=== PATIENT | female | born 1960 | race African-American/Black ===

== ENCOUNTER 2019-02-01 10:32 | Inpatient (IN) | payer MEDICARE, OTHER ==
[2019-02-01 11:00] VITALS: BMI 19.7
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
[2019-02-01] MEDS ORDERED: ALBUTEROL SO4 8 GM HFA INHALER IH PRN (11:49)
[2019-02-01] MEDS ORDERED: MAGNESIUM HYDROX 2400MG/30ML ORAL SUSPENSION 30 ML CUP PO PRN (11:57)
[2019-02-01] MEDS ORDERED: MAG HYDROX/AL HYDROX/SIMETH 30 ML UNIT-DOSE CUP PO PRN (11:57)
[2019-02-01] MEDS ORDERED: MENTHOL/PHENOL 1 EACH UD MM PRN (11:57)
[2019-02-01] MEDS ORDERED: hydrOXYzine PAMOATE 25 MG CAPSULE (FP) PO PRN (11:57)
[2019-02-01] MEDS ORDERED: MAGNESIUM CITRATE 300 ML BOTTLE PO PRN (11:57)
[2019-02-01] MEDS ORDERED: ACETAMINOPHEN 325 MG TABLET (FP) PO PRN ×2 (11:57)
[2019-02-01] MEDS ORDERED: diazePAM 5 MG TABLET PO PRN (11:58)
[2019-02-01] MEDS: LOSARTAN POTASSIUM 50 MG TABLET (FP) PO SCH (15:18)
[2019-02-01] MEDS: NIFEdipine E.R 60 MG TABLET (UD) PO SCH (15:18)
[2019-02-01] MEDS: UMECLIDINIUM/VILANTEROL (ANORO) 62.5/25 MCG INHALER IH SCH (15:18)
[2019-02-01] MEDS: ASPIRIN 81 MG CHEWABLE TABLETS PO SCH (15:18)
[2019-02-01] MEDS: diazePAM 5 MG TABLET PO SCH ×2 (15:19→21:41)
[2019-02-01] MEDS: MUPIROCIN 2% TOPICAL OINTMENT 22 GM TUBE TP SCH ×2 (15:19→21:42)
[2019-02-01] MEDS ORDERED: cloNIDine HCL 0.1 MG TABLET PO PRN (21:28)
[2019-02-01] MEDS: THIAMINE HCL 100 MG TABLET (FP) PO SCH (21:41)
[2019-02-01] MEDS: ATORVASTATIN CA 10 MG TABLET (FP) PO SCH (21:43)
[2019-02-02] MEDS: MUPIROCIN 2% TOPICAL OINTMENT 22 GM TUBE TP SCH ×3 (05:38→22:32)
[2019-02-02] MEDS: diazePAM 5 MG TABLET PO SCH ×3 (05:39→22:30)
[2019-02-02] MEDS ORDERED: ASPIRIN 81 MG CHEWABLE TABLETS PO SCH (10:00)
[2019-02-02] MEDS ORDERED: PATIENT'S OWN MEDICATION (NON-FORMULARY) (Losartan Potassium [Losartan Potassium] 100 MG) PO SCH (10:00)
[2019-02-02] MEDS ORDERED: NIFEdipine E.R. 30 MG TABLET (FP) PO SCH (10:00)
[2019-02-02] MEDS ORDERED: UMECLIDINIUM/VILANTEROL (ANORO) 62.5/25 MCG INHALER IH SCH (10:00)
[2019-02-02 10:14] LABS: HEMATOCRIT 38.4 % (32.4-45.2); MCH 32.8 pg (25.7-33.7); MCHC 33.8 g/dl (32.0-36.0); PLATELET COUNT 325 K/MM3 (134-434); RBC 3.96 M/mm3 (3.60-5.2); WHITE BLOOD COUNT 4.8 K/mm3 (4.0-10.0)
[2019-02-02] MEDS: ASPIRIN 81 MG CHEWABLE TABLETS PO SCH (10:21)
[2019-02-02] MEDS: PRENATAL VITAMINS W/ FOLIC ACID TABLET (FP) PO SCH (10:21)
[2019-02-02] MEDS: NIFEdipine E.R 60 MG TABLET (UD) PO SCH (10:21)
[2019-02-02] MEDS: HYDROCHLOROTHIAZIDE 25 MG TABLET (FP) PO SCH (10:21)
[2019-02-02] MEDS: UMECLIDINIUM/VILANTEROL (ANORO) 62.5/25 MCG INHALER IH SCH (10:22)
[2019-02-02] MEDS: LOSARTAN POTASSIUM 50 MG TABLET (FP) PO SCH (10:22)
[2019-02-02 10:27] LABS: ALBUMIN 3.9 g/dl (3.4-5.0); BILIRUBIN,TOTAL 1.4 mg/dL (0.2-1); BLOOD UREA NITROGEN 8.3 mg/dL (7-18); CALCIUM 10.2 mg/dL (8.5-10.1); CREATININE 0.7 mg/dL (0.55-1.3); POTASSIUM 3.9 mmol/L (3.5-5.1); TOT PROT 7.2 g/dl (6.4-8.2)
--- NOTE | 2019-02-02 11:50 | PN ---
S CIWA - CIWA Score Nausea/Vomitin-No Nausea/No Vomiting Muscle Tremors: 3 Anxiety: 3 Agitation: 3 Paroxysmal Sweats: 1-Minimal Palms Moist Orientation: 0-Oriented Tacttile Disturbances: 0-None Auditory Disturbances: 0-None Visual Disturbances: 0-None Headache: 0-None Present CIWA-Ar Total Score: 10 BHS Progress Note (SOAP) Subjective: sweats shakes interrupted sleep agitation Objective: 02/02/19 11:29 Vital Signs Temperature 98.2 F 02/02/19 09:41 Pulse Rate 86 02/02/19 09:41 Respiratory Rate 16 02/02/19 09:41 Blood Pressure 125/83 02/02/19 09:41 O2 Sat by Pulse Oximetry (%) Laboratory Tests 02/01/19 02/02/19 02/02/19 16:24 05:37 08:15 WBC 4.8 RBC 3.96 Hgb 13.0 Hct 38.4 MCV 97.0 H MCH 32.8 MCHC 33.8 RDW 14.0 Plt Count 325 MPV 8.0 Sodium Potassium Chloride Carbon Dioxide Anion Gap BUN Creatinine Est GFR (CKD-EPI)AfAm Est GFR (CKD-EPI)NonAf POC Glucometer 249 109 Random Glucose Calcium Total Bilirubin AST ALT Alkaline Phosphatase Total Protein Albumin 02/02/19 08:15 WBC RBC Hgb Hct MCV MCH MCHC RDW Plt Count MPV Sodium 141 Potassium 3.9 Chloride 102 Carbon Dioxide 32 Anion Gap 6 L BUN 8.3 Creatinine 0.7 Est GFR (CKD-EPI)AfAm 111.47 Est GFR (CKD-EPI)NonAf 96.18 POC Glucometer Random Glucose 101 Calcium 10.2 H Total Bilirubin 1.4 H AST 113 H ALT 116 H Alkaline Phosphatase 120 H Total Protein 7.2 Albumin 3.9 labs noted elevated liver enzymes, calcium, bilirubin d/c tylenol repeat labs aaox3 ambulating no acute distress Assessment: 02/02/19 11:49 withdrawals Plan: continue detox increase fluids repeat labs
[2019-02-02] MEDS: THIAMINE HCL 100 MG TABLET (FP) PO SCH (22:30)
[2019-02-02] MEDS: MELATONIN 5 MG TABLETS PO PRN (22:30)
[2019-02-02] MEDS: ATORVASTATIN CA 10 MG TABLET (FP) PO SCH (22:30)
[2019-02-03] MEDS: diazePAM 5 MG TABLET PO SCH ×2 (05:40→18:28)
[2019-02-03] MEDS: MUPIROCIN 2% TOPICAL OINTMENT 22 GM TUBE TP SCH ×2 (05:40→14:47)
[2019-02-03] MEDS: UMECLIDINIUM/VILANTEROL (ANORO) 62.5/25 MCG INHALER IH SCH (10:01)
[2019-02-03] MEDS: NIFEdipine E.R 60 MG TABLET (UD) PO SCH (10:02)
[2019-02-03] MEDS: LOSARTAN POTASSIUM 50 MG TABLET (FP) PO SCH (10:02)
[2019-02-03] MEDS: PRENATAL VITAMINS W/ FOLIC ACID TABLET (FP) PO SCH (10:02)
[2019-02-03] MEDS: ASPIRIN 81 MG CHEWABLE TABLETS PO SCH (10:02)
[2019-02-03] MEDS: HYDROCHLOROTHIAZIDE 25 MG TABLET (FP) PO SCH (10:02)
--- NOTE | 2019-02-03 12:19 | PN ---
S CIWA - CIWA Score Nausea/Vomitin-No Nausea/No Vomiting Muscle Tremors: 2 Anxiety: 1-Mildly Anxious Agitation: 1-Slight > Activity Paroxysmal Sweats: 1-Minimal Palms Moist Orientation: 0-Oriented Tacttile Disturbances: 0-None Auditory Disturbances: 0-None Visual Disturbances: 0-None Headache: 0-None Present CIWA-Ar Total Score: 5 BHS Progress Note (SOAP) Subjective: sweats anxiety Objective: 02/03/19 12:17 Vital Signs Temperature 98.2 F 02/03/19 11:26 Pulse Rate 73 02/03/19 11:26 Respiratory Rate 18 02/03/19 11:26 Blood Pressure 125/89 02/03/19 11:26 O2 Sat by Pulse Oximetry (%) Laboratory Tests 02/01/19 02/02/19 02/02/19 16:24 05:37 08:15 WBC RBC Hgb Hct MCV MCH MCHC RDW Plt Count MPV Sodium Potassium Chloride Carbon Dioxide Anion Gap BUN Creatinine Est GFR (CKD-EPI)AfAm Est GFR (CKD-EPI)NonAf POC Glucometer 249 109 Random Glucose Calcium Total Bilirubin AST ALT Alkaline Phosphatase Total Protein Albumin RPR Titer HIV 1&2 Antibody Screen Negative HIV P24 Antigen Negative 02/02/19 02/02/19 02/02/19 08:15 08:15 08:15 WBC 4.8 RBC 3.96 Hgb 13.0 Hct 38.4 MCV 97.0 H MCH 32.8 MCHC 33.8 RDW 14.0 Plt Count 325 MPV 8.0 Sodium 141 Potassium 3.9 Chloride 102 Carbon Dioxide 32 Anion Gap 6 L BUN 8.3 Creatinine 0.7 Est GFR (CKD-EPI)AfAm 111.47 Est GFR (CKD-EPI)NonAf 96.18 POC Glucometer Random Glucose 101 Calcium 10.2 H Total Bilirubin 1.4 H AST 113 H ALT 116 H Alkaline Phosphatase 120 H Total Protein 7.2 Albumin 3.9 RPR Titer Nonreactive HIV 1&2 Antibody Screen HIV P24 Antigen 02/02/19 02/03/19 16:37 05:38 WBC RBC Hgb Hct MCV MCH MCHC RDW Plt Count MPV Sodium Potassium Chloride Carbon Dioxide Anion Gap BUN Creatinine Est GFR (CKD-EPI)AfAm Est GFR (CKD-EPI)NonAf POC Glucometer 136 103 Random Glucose Calcium Total Bilirubin AST ALT Alkaline Phosphatase Total Protein Albumin RPR Titer HIV 1&2 Antibody Screen HIV P24 Antigen repeated labs ordered aaox3 ambulating no acute distress Assessment: 02/03/19 12:18 mild withdrawals facial abrasions healing Plan: continue detox increase fluids pending labs d/c in am
[2019-02-03 18:40] LABS: BASO % 0.7 % (0-2.0); EOS % 1.3 % (0-4.5); HEMATOCRIT 38.5 % (32.4-45.2); LYMPH % 49.7 % (8-40); MCHC 33.8 g/dl (32.0-36.0); MEAN CELL VOLUME 97.7 fl (80-96); MEAN PLT VOLUME 7.8 fl (7.5-11.1); MONO % 8.9 % (3.8-10.2); NEUT % 39.4 % (42.8-82.8); PLATELET COUNT 343 K/MM3 (134-434); RBC 3.94 M/mm3 (3.60-5.2); RDW 13.8 % (11.6-15.6); WHITE BLOOD COUNT 6.9 K/mm3 (4.0-10.0)
[2019-02-03] MEDS: THIAMINE HCL 100 MG TABLET (FP) PO SCH (22:16)
[2019-02-03] MEDS: ATORVASTATIN CA 10 MG TABLET (FP) PO SCH (22:16)
[2019-02-03] MEDS: MELATONIN 5 MG TABLETS PO PRN (22:17)
[2019-02-04] MEDS: MUPIROCIN 2% TOPICAL OINTMENT 22 GM TUBE TP SCH ×2 (00:11→05:56)
[2019-02-04] MEDS ORDERED: diazePAM 5 MG TABLET PO ONE (06:00)
[2019-02-04 06:47] VITALS: TEMP 97.7
--- NOTE | 2019-02-04 08:26 | DS ---
[facility] Detox Discharge Summary Admission Date: 02/01/19 Discharge Date: 02/04/19 - History Present History: Alcohol Dependence, Cannabis Dependence - Physical Exam Results Vital Signs: Vital Signs Temperature 97.7 F 02/04/19 06:00 Pulse Rate 73 02/04/19 06:00 Respiratory Rate 16 02/04/19 06:00 Blood Pressure 115/72 02/04/19 06:00 O2 Sat by Pulse Oximetry (%) Pertinent Admission Physical Exam Findings: pt arrived in withdrawals Vital Signs Temperature 97.7 F 02/04/19 06:00 Pulse Rate 73 02/04/19 06:00 Respiratory Rate 16 02/04/19 06:00 Blood Pressure 115/72 02/04/19 06:00 O2 Sat by Pulse Oximetry (%) Laboratory Tests 02/01/19 02/02/19 02/02/19 16:24 05:37 08:15 WBC RBC Hgb Hct MCV MCH MCHC RDW Plt Count MPV Absolute Neuts (auto) Neutrophils % Lymphocytes % Monocytes % Eosinophils % Basophils % Nucleated RBC % Sodium Potassium Chloride Carbon Dioxide Anion Gap BUN Creatinine Est GFR (CKD-EPI)AfAm Est GFR (CKD-EPI)NonAf POC Glucometer 249 109 Random Glucose Calcium Total Bilirubin AST ALT Alkaline Phosphatase Total Protein Albumin RPR Titer HIV 1&2 Antibody Screen Negative HIV P24 Antigen Negative 02/02/19 02/02/19 02/02/19 08:15 08:15 08:15 WBC 4.8 RBC 3.96 Hgb 13.0 Hct 38.4 MCV 97.0 H MCH 32.8 MCHC 33.8 RDW 14.0 Plt Count 325 MPV 8.0 Absolute Neuts (auto) Neutrophils % Lymphocytes % Monocytes % Eosinophils % Basophils % Nucleated RBC % Sodium 141 Potassium 3.9 Chloride 102 Carbon Dioxide 32 Anion Gap 6 L BUN 8.3 Creatinine 0.7 Est GFR (CKD-EPI)AfAm 111.47 Est GFR (CKD-EPI)NonAf 96.18 POC Glucometer Random Glucose 101 Calcium 10.2 H Total Bilirubin 1.4 H AST 113 H ALT 116 H Alkaline Phosphatase 120 H Total Protein 7.2 Albumin 3.9 RPR Titer Nonreactive HIV 1&2 Antibody Screen HIV P24 Antigen 02/02/19 02/03/19 02/03/19 16:37 05:38 13:30 WBC 6.9 RBC 3.94 Hgb 13.0 Hct 38.5 MCV 97.7 H MCH 33.0 MCHC 33.8 RDW 13.8 Plt Count 343 MPV 7.8 Absolute Neuts (auto) 2.7 Neutrophils % 39.4 L Lymphocytes % 49.7 H Monocytes % 8.9 Eosinophils % 1.3 Basophils % 0.7 Nucleated RBC % 0 Sodium Potassium Chloride Carbon Dioxide Anion Gap BUN Creatinine Est GFR (CKD-EPI)AfAm Est GFR (CKD-EPI)NonAf POC Glucometer 136 103 Random Glucose Calcium Total Bilirubin AST ALT Alkaline Phosphatase Total Protein Albumin RPR Titer HIV 1&2 Antibody Screen HIV P24 Antigen 02/03/19 02/04/19 16:47 05:52 WBC RBC Hgb Hct MCV MCH MCHC RDW Plt Count MPV Absolute Neuts (auto) Neutrophils % Lymphocytes % Monocytes % Eosinophils % Basophils % Nucleated RBC % Sodium Potassium Chloride Carbon Dioxide Anion Gap BUN Creatinine Est GFR (CKD-EPI)AfAm Est GFR (CKD-EPI)NonAf POC Glucometer 82 88 Random Glucose Calcium Total Bilirubin AST ALT Alkaline Phosphatase Total Protein Albumin RPR Titer HIV 1&2 Antibody Screen HIV P24 Antigen today pt is aaox3 ambulating no acute distress - Treatment Hospital Course: Detox Protocol Followed, Detoxed Safely, Responded well, Discharged Condition Good, Rehab Referral Accepted Patient has Accepted a Rehab Referral to: pt referred to [facility] [place] - Medication Discharge Medications: Ambulatory Orders Aspirin [ASA -] 81 mg PO DAILY 10/09/14 metFORMIN HCL [Glucophage -] 600 mg PO DAILY 10/09/14 Albuterol Sulfate Inhaler - [Ventolin Hfa Inhaler -] 2 inh PO Q4H PRN 02/01/19 Ascorbate Calcium [Vitamin C] 500 mg PO DAILY 02/01/19 Hydrochlorothiazide 25 mg PO DAILY 02/01/19 Losartan Potassium 100 mg PO DAILY 02/01/19 Lovastatin 40 mg PO 02/01/19 Nifedipine [Procardia Xl] 30 mg PO DAILY 02/01/19 Umeclidinium Brm/Vilanterol Tr [Anoro Ellipta 62.5-25 Mcg INH] 1 each IH DAILY 02/01/19 Vitamin E 400 unit PO DAILY 02/01/19 - Diagnosis (1) Cannabis dependence Current Visit: Yes Status: Chronic (2) Alcohol dependence Current Visit: No Status: Chronic Qualifiers: Substance use status: uncomplicated Qualified Code(s): F10.20 - Alcohol dependence, uncomplicated (3) Asthma Current Visit: No Status: Chronic (4) COPD (chronic obstructive pulmonary disease) Current Visit: No Status: Chronic (5) Diabetes 1.5, 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
[2019-02-04 09:56] VITALS: BP 122/86; PULSE 65
== END 2019-02-04 08:39 | disposition home or self-care (01) | DRG 897 ==
LOC: YASAS 10:32 → Y6N 14:13
PROVIDERS: ADMIT Allergy & Immunology; ATTEND Allergy & Immunology
PROC: HZ2ZZZZ Detoxification Services for Substance Abuse Treatment (ICD-10-PCS; principal; 2019-02-01)
DX: F10.230 Alcohol dependence with withdrawal, uncomplicated (principal); F12.20 Cannabis dependence, uncomplicated; F17.210 Nicotine dependence, cigarettes, uncomplicated; E78.5 Hyperlipidemia, unspecified; I10 Essential (primary) hypertension; J44.9 Chronic obstructive pulmonary disease, unspecified; J45.998 Other asthma; E11.9 Type 2 diabetes mellitus without complications; Z79.84 Long term (current) use of oral hypoglycemic drugs; Z87.828 Personal history of other (healed) physical injury and trauma; Z88.1 Allergy status to other antibiotic agents; Z88.8 Allergy status to other drugs, medicaments and biological substances
CPT/HCPCS: 36415; 71045-TC-FY; 80053; 82962; 85025; 85027; 86593; 87389; J0735

== ENCOUNTER 2019-03-27 10:03 | Inpatient (IN) | payer OTHER ==
[2019-03-27 10:52] VITALS: BMI 20.5
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
[2019-03-27] MEDS ORDERED: MAGNESIUM CITRATE 300 ML BOTTLE PO PRN (11:42)
[2019-03-27] MEDS ORDERED: MENTHOL/PHENOL 1 EACH UD MM PRN (11:42)
[2019-03-27] MEDS ORDERED: BISMUTH SUBSALICYLATE 524 MG/30 ML UD PO PRN (11:42)
[2019-03-27] MEDS ORDERED: NICOTINE POLACRILEX 2 MG GUM BUC PRN (11:42)
[2019-03-27] MEDS ORDERED: ACETAMINOPHEN 325 MG TABLET (FP) PO PRN ×2 (11:42)
[2019-03-27] MEDS ORDERED: chlordiazePOXIDE HCL 10 MG CAPSULE PO PRN (11:42)
[2019-03-27] MEDS ORDERED: METHOCARBAMOL 500 MG TABLET PO PRN (11:42)
[2019-03-27] MEDS ORDERED: MAGNESIUM HYDROX 2400MG/30ML ORAL SUSPENSION 30 ML CUP PO PRN (11:42)
[2019-03-27] MEDS ORDERED: MAG HYDROX/AL HYDROX/SIMETH 30 ML UNIT-DOSE CUP PO PRN (11:42)
[2019-03-27] MEDS ORDERED: hydrOXYzine PAMOATE 25 MG CAPSULE (FP) PO PRN (11:42)
[2019-03-27] MEDS ORDERED: ALBUTEROL SO4 8 GM HFA INHALER IH PRN (11:44)
[2019-03-27] MEDS: chlordiazePOXIDE HCL 25 MG CAPSULE PO SCH ×2 (12:55→21:50)
[2019-03-27] MEDS: ATORVASTATIN CA 10 MG TABLET (FP) PO SCH (21:50)
[2019-03-27] MEDS: MELATONIN 5 MG TABLETS PO PRN (21:51)
[2019-03-27] MEDS: THIAMINE HCL 100 MG TABLET (FP) PO SCH (21:51)
[2019-03-28] MEDS: chlordiazePOXIDE HCL 25 MG CAPSULE PO SCH ×3 (06:34→21:03)
[2019-03-28] MEDS: metFORMIN HCL 500 MG TABLET (FP) PO SCH (06:35)
[2019-03-28 09:51] LABS: HEMATOCRIT 39.6 % (32.4-45.2); HEMOGLOBIN 13.7 GM/dL (10.7-15.3); MCH 34.5 pg (25.7-33.7); MCHC 34.7 g/dl (32.0-36.0); MEAN CELL VOLUME 99.4 fl (80-96); MEAN PLT VOLUME 8.4 fl (7.5-11.1); PLATELET COUNT 253 K/MM3 (134-434); RBC 3.98 M/mm3 (3.60-5.2); RDW 15.4 % (11.6-15.6); WHITE BLOOD COUNT 3.9 K/mm3 (4.0-10.0)
[2019-03-28] MEDS ORDERED: metFORMIN HCL 500 MG TABLET (FP) PO SCH (10:00)
[2019-03-28 10:12] LABS: ALBUMIN 4.2 g/dl (3.4-5.0); BILIRUBIN,TOTAL 1.6 mg/dL (0.2-1); BLOOD UREA NITROGEN 10.8 mg/dL (7-18); CALCIUM 9.8 mg/dL (8.5-10.1); CREATININE 0.8 mg/dL (0.55-1.3); POTASSIUM 3.2 mmol/L (3.5-5.1); TOT PROT 7.5 g/dl (6.4-8.2)
[2019-03-28] MEDS: PRENATAL VITAMINS W/ FOLIC ACID TABLET (FP) PO SCH (10:31)
[2019-03-28] MEDS: LOSARTAN POTASSIUM 50 MG TABLET (FP) PO SCH (10:31)
[2019-03-28] MEDS: ASPIRIN 81 MG CHEWABLE TABLETS PO SCH (10:31)
[2019-03-28] MEDS: UMECLIDINIUM/VILANTEROL (ANORO) 62.5/25 MCG INHALER IH SCH (10:31)
[2019-03-28] MEDS: HYDROCHLOROTHIAZIDE 25 MG TABLET (FP) PO SCH (10:31)
--- NOTE | 2019-03-28 12:09 | PN ---
[facility] CIWA - CIWA Score Nausea/Vomitin-No Nausea/No Vomiting Muscle Tremors: 3 Anxiety: 2 Agitation: 3 Paroxysmal Sweats: 3 Orientation: 0-Oriented Tacttile Disturbances: 0-None Auditory Disturbances: 0-None Visual Disturbances: 0-None Headache: 0-None Present CIWA-Ar Total Score: 11 S Progress Note (SOAP) Subjective: sweats shakes poor appetite interrupted sleep diarrhea Objective: 03/28/19 12:07 Vital Signs Temperature 98.8 F 03/28/19 11:00 Pulse Rate 80 03/28/19 11:00 Respiratory Rate 19 03/28/19 11:00 Blood Pressure 141/89 03/28/19 11:00 O2 Sat by Pulse Oximetry (%) Laboratory Tests 03/27/19 03/28/19 03/28/19 16:22 06:33 08:00 WBC 3.9 L RBC 3.98 Hgb 13.7 Hct 39.6 MCV 99.4 H MCH 34.5 H MCHC 34.7 RDW 15.4 D Plt Count 253 D MPV 8.4 Sodium Potassium Chloride Carbon Dioxide Anion Gap BUN Creatinine Est GFR (CKD-EPI)AfAm Est GFR (CKD-EPI)NonAf POC Glucometer 113 171 Random Glucose Calcium Total Bilirubin AST ALT Alkaline Phosphatase Total Protein Albumin RPR Titer 03/28/19 03/28/19 08:00 08:00 WBC RBC Hgb Hct MCV MCH MCHC RDW Plt Count MPV Sodium 139 Potassium 3.2 L Chloride 98 Carbon Dioxide 32 Anion Gap 8 BUN 10.8 Creatinine 0.8 Est GFR (CKD-EPI)AfAm 94.85 Est GFR (CKD-EPI)NonAf 81.84 POC Glucometer Random Glucose 152 H Calcium 9.8 Total Bilirubin 1.6 H AST 119 H ALT 81 H Alkaline Phosphatase 106 Total Protein 7.5 Albumin 4.2 RPR Titer Nonreactive labs noted elevated liver enzymes; tylenol d/c low potassium 3.2; kdur 20meq x 3 days ordered aaox3 ambulating no acute distress Assessment: 03/28/19 12:09 withdrawals Plan: continue detox glucerna with meals pepto prn
[2019-03-28] MEDS: POTASSIUM CHLORIDE TABS 20 MEQ TABLET.ER (FP) PO SCH (12:36)
[2019-03-28] MEDS: NIFEdipine E.R. 30 MG TABLET (FP) PO SCH (12:36)
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
[2019-03-28] MEDS: THIAMINE HCL 100 MG TABLET (FP) PO SCH (21:03)
[2019-03-28] MEDS: ATORVASTATIN CA 10 MG TABLET (FP) PO SCH (21:03)
[2019-03-28] MEDS: MELATONIN 5 MG TABLETS PO PRN (21:03)
[2019-03-29] MEDS: chlordiazePOXIDE 5 MG CAPSULE PO SCH ×3 (06:20→21:19)
[2019-03-29] MEDS: metFORMIN HCL 500 MG TABLET (FP) PO SCH (07:05)
--- NOTE | 2019-03-29 09:49 | PN ---
[facility] CIWA - CIWA Score Nausea/Vomitin-No Nausea/No Vomiting Muscle Tremors: 2 Anxiety: 2 Agitation: 3 Paroxysmal Sweats: 2 Orientation: 0-Oriented Tacttile Disturbances: 0-None Auditory Disturbances: 0-None Visual Disturbances: 0-None Headache: 0-None Present CIWA-Ar Total Score: 9 S Progress Note (SOAP) Subjective: irritable agitation sweats interrupted sleep Objective: 03/29/19 09:44 Vital Signs Temperature 99.3 F 03/29/19 05:35 Pulse Rate 71 03/29/19 05:35 Respiratory Rate 16 03/29/19 05:35 Blood Pressure 117/79 03/29/19 05:35 O2 Sat by Pulse Oximetry (%) Laboratory Tests 03/27/19 03/28/19 03/28/19 16:22 06:33 08:00 WBC 3.9 L RBC 3.98 Hgb 13.7 Hct 39.6 MCV 99.4 H MCH 34.5 H MCHC 34.7 RDW 15.4 D Plt Count 253 D MPV 8.4 Sodium Potassium Chloride Carbon Dioxide Anion Gap BUN Creatinine Est GFR (CKD-EPI)AfAm Est GFR (CKD-EPI)NonAf POC Glucometer 113 171 Random Glucose Calcium Total Bilirubin AST ALT Alkaline Phosphatase Total Protein Albumin RPR Titer 03/28/19 03/28/19 03/28/19 08:00 08:00 16:44 WBC RBC Hgb Hct MCV MCH MCHC RDW Plt Count MPV Sodium 139 Potassium 3.2 L Chloride 98 Carbon Dioxide 32 Anion Gap 8 BUN 10.8 Creatinine 0.8 Est GFR (CKD-EPI)AfAm 94.85 Est GFR (CKD-EPI)NonAf 81.84 POC Glucometer 110 Random Glucose 152 H Calcium 9.8 Total Bilirubin 1.6 H AST 119 H ALT 81 H Alkaline Phosphatase 106 Total Protein 7.5 Albumin 4.2 RPR Titer Nonreactive 03/29/19 06:22 WBC RBC Hgb Hct MCV MCH MCHC RDW Plt Count MPV Sodium Potassium Chloride Carbon Dioxide Anion Gap BUN Creatinine Est GFR (CKD-EPI)AfAm Est GFR (CKD-EPI)NonAf POC Glucometer 107 Random Glucose Calcium Total Bilirubin AST ALT Alkaline Phosphatase Total Protein Albumin RPR Titer labs noted repeated labs aaox3 ambulating no acute distress Assessment: 03/29/19 09:45 withdrawals Plan: continue detox increase fluids pending labs
[2019-03-29] MEDS: PRENATAL VITAMINS W/ FOLIC ACID TABLET (FP) PO SCH (10:23)
[2019-03-29] MEDS: ASPIRIN 81 MG CHEWABLE TABLETS PO SCH (10:23)
[2019-03-29] MEDS: HYDROCHLOROTHIAZIDE 25 MG TABLET (FP) PO SCH (10:23)
[2019-03-29] MEDS: POTASSIUM CHLORIDE TABS 20 MEQ TABLET.ER (FP) PO SCH (10:23)
[2019-03-29] MEDS: LOSARTAN POTASSIUM 50 MG TABLET (FP) PO SCH (10:23)
[2019-03-29] MEDS: NIFEdipine E.R. 30 MG TABLET (FP) PO SCH (10:23)
[2019-03-29] MEDS: UMECLIDINIUM/VILANTEROL (ANORO) 62.5/25 MCG INHALER IH SCH (10:24)
[2019-03-29] MEDS: MELATONIN 5 MG TABLETS PO PRN (21:19)
[2019-03-29] MEDS: THIAMINE HCL 100 MG TABLET (FP) PO SCH (21:19)
[2019-03-29] MEDS: ATORVASTATIN CA 10 MG TABLET (FP) PO SCH (21:19)
[2019-03-30] MEDS ORDERED: chlordiazePOXIDE HCL 10 MG CAPSULE PO PRN
[2019-03-30] MEDS ORDERED: chlordiazePOXIDE HCL 10 MG CAPSULE PO SCH (05:00)
[2019-03-30] MEDS: metFORMIN HCL 500 MG TABLET (FP) PO SCH (07:23)
[2019-03-30 09:32] VITALS: BP 119/69; PULSE 63; TEMP 98.6
[2019-03-30 09:40] LABS: BASO % 1.4 % (0-2.0); EOS % 1.9 % (0-4.5); HEMATOCRIT 40.8 % (32.4-45.2); HEMOGLOBIN 13.5 GM/dL (10.7-15.3); LYMPH % 46.2 % (8-40); MCH 33.5 pg (25.7-33.7); MCHC 33.2 g/dl (32.0-36.0); MEAN CELL VOLUME 100.8 fl (80-96); MEAN PLT VOLUME 8.2 fl (7.5-11.1); NEUT % 38.5 % (42.8-82.8); PLATELET COUNT 251 K/MM3 (134-434); RBC 4.05 M/mm3 (3.60-5.2); RDW 14.9 % (11.6-15.6); WHITE BLOOD COUNT 4.4 K/mm3 (4.0-10.0)
[2019-03-30 10:02] LABS: ALBUMIN 4.1 g/dl (3.4-5.0); BILIRUBIN,TOTAL 1.2 mg/dL (0.2-1); BLOOD UREA NITROGEN 15.2 mg/dL (7-18); CALCIUM 10.1 mg/dL (8.5-10.1); CREATININE 0.8 mg/dL (0.55-1.3); POTASSIUM 4.4 mmol/L (3.5-5.1); TOT PROT 7.5 g/dl (6.4-8.2)
--- NOTE | 2019-03-30 10:16 | PN ---
[facility] Progress Note Note: pt did not want to talk to provider, pt refused to stay to complete her detox, was irrate, disrespectful, cursing, threatening and signed out AMA. pt was advised to be patient and stay to complete her detox but she insisted on leaving and signed out AMA.
--- NOTE | 2019-03-30 10:17 | DS ---
[facility] Detox Discharge Summary Admission Date: 03/27/19 - History Present History: Alcohol Dependence, Cannabis Dependence - Physical Exam Results Vital Signs: Vital Signs Temperature 98.6 F 03/30/19 06:00 Pulse Rate 63 03/30/19 06:00 Respiratory Rate 18 03/30/19 06:00 Blood Pressure 119/69 03/30/19 06:00 O2 Sat by Pulse Oximetry (%) Pertinent Admission Physical Exam Findings: Vital Signs Temperature 98.6 F 03/30/19 06:00 Pulse Rate 63 03/30/19 06:00 Respiratory Rate 18 03/30/19 06:00 Blood Pressure 119/69 03/30/19 06:00 O2 Sat by Pulse Oximetry (%) Laboratory Tests 03/27/19 03/28/19 03/28/19 16:22 06:33 08:00 WBC 3.9 L RBC 3.98 Hgb 13.7 Hct 39.6 MCV 99.4 H MCH 34.5 H MCHC 34.7 RDW 15.4 D Plt Count 253 D MPV 8.4 Absolute Neuts (auto) Neutrophils % Lymphocytes % Monocytes % Eosinophils % Basophils % Nucleated RBC % Sodium Potassium Chloride Carbon Dioxide Anion Gap BUN Creatinine Est GFR (CKD-EPI)AfAm Est GFR (CKD-EPI)NonAf POC Glucometer 113 171 Random Glucose Calcium Total Bilirubin AST ALT Alkaline Phosphatase Total Protein Albumin RPR Titer 03/28/19 03/28/19 03/28/19 08:00 08:00 16:44 WBC RBC Hgb Hct MCV MCH MCHC RDW Plt Count MPV Absolute Neuts (auto) Neutrophils % Lymphocytes % Monocytes % Eosinophils % Basophils % Nucleated RBC % Sodium 139 Potassium 3.2 L Chloride 98 Carbon Dioxide 32 Anion Gap 8 BUN 10.8 Creatinine 0.8 Est GFR (CKD-EPI)AfAm 94.85 Est GFR (CKD-EPI)NonAf 81.84 POC Glucometer 110 Random Glucose 152 H Calcium 9.8 Total Bilirubin 1.6 H AST 119 H ALT 81 H Alkaline Phosphatase 106 Total Protein 7.5 Albumin 4.2 RPR Titer Nonreactive 03/29/19 03/29/19 03/30/19 06:22 16:42 07:22 WBC RBC Hgb Hct MCV MCH MCHC RDW Plt Count MPV Absolute Neuts (auto) Neutrophils % Lymphocytes % Monocytes % Eosinophils % Basophils % Nucleated RBC % Sodium Potassium Chloride Carbon Dioxide Anion Gap BUN Creatinine Est GFR (CKD-EPI)AfAm Est GFR (CKD-EPI)NonAf POC Glucometer 107 109 113 Random Glucose Calcium Total Bilirubin AST ALT Alkaline Phosphatase Total Protein Albumin RPR Titer 03/30/19 03/30/19 08:10 08:10 WBC 4.4 RBC 4.05 Hgb 13.5 Hct 40.8 MCV 100.8 H MCH 33.5 MCHC 33.2 RDW 14.9 Plt Count 251 MPV 8.2 Absolute Neuts (auto) 1.7 Neutrophils % 38.5 L Lymphocytes % 46.2 H Monocytes % 12.0 H Eosinophils % 1.9 Basophils % 1.4 Nucleated RBC % 0 Sodium 140 Potassium 4.4 Chloride 103 Carbon Dioxide 32 Anion Gap 6 L BUN 15.2 Creatinine 0.8 Est GFR (CKD-EPI)AfAm 94.85 Est GFR (CKD-EPI)NonAf 81.84 POC Glucometer Random Glucose 142 H Calcium 10.1 Total Bilirubin 1.2 H AST 154 H ALT 100 H Alkaline Phosphatase 99 Total Protein 7.5 Albumin 4.1 RPR Titer aaox3 ambulating no acute distress - Treatment Hospital Course: Rehab Referral Accepted - Medication Discharge Medications: Ambulatory Orders Aspirin [ASA -] 81 mg PO DAILY 10/09/14 metFORMIN HCL [Glucophage -] 600 mg PO DAILY 10/09/14 Albuterol Sulfate Inhaler - [Ventolin Hfa Inhaler -] 2 inh PO Q4H PRN 02/01/19 Ascorbate Calcium [Vitamin C] 500 mg PO DAILY 02/01/19 Hydrochlorothiazide 25 mg PO DAILY 02/01/19 Losartan Potassium 100 mg PO DAILY 02/01/19 Lovastatin 40 mg PO DAILY 02/01/19 Nifedipine [Procardia Xl] 30 mg PO DAILY 02/01/19 Umeclidinium Brm/Vilanterol Tr [Anoro Ellipta 62.5-25 Mcg INH] 1 each IH DAILY 02/01/19 Vitamin E 400 unit PO DAILY 02/01/19 - Diagnosis (1) Alcohol dependence, uncomplicated Current Visit: Yes Status: Chronic (2) Cannabis dependence Current Visit: Yes Status: Chronic (3) Substance-induced anxiety disorder Current Visit: Yes Status: Acute (4) Substance-induced sleep disorder Current Visit: Yes Status: Acute (5) COPD (chronic obstructive pulmonary disease) Current Visit: Yes Status: Chronic Qualifiers: COPD type: chronic bronchitis (6) Diabetes 1.5, managed as type 2 Current Visit: Yes Status: Chronic (7) Dyslipidemia Current Visit: Yes Status: Chronic (8) HTN (hypertension) Current Visit: Yes Status: Chronic Qualifiers: Hypertension type: essential hypertension Qualified Code(s): I10 - Essential (primary) hypertension (9) Nicotine dependence Current Visit: Yes Status: Chronic Qualifiers: Nicotine product type: cigarettes Substance use status: uncomplicated Qualified Code(s): F17.210 - Nicotine dependence, cigarettes, uncomplicated (10) Asthma Current Visit: No Status: Chronic Qualifiers: Asthma severity: mild Asthma persistence: intermittent - AMA Did Patient Leave Against Medical Advice: Yes
[2019-03-31] MEDS ORDERED: chlordiazePOXIDE HCL 10 MG CAPSULE PO ONE (05:00)
== END 2019-03-30 10:16 | disposition left against medical advice (07) | DRG 894 ==
LOC: YASAS 10:03 → Y6N 12:05
PROVIDERS: ADMIT Allergy & Immunology; ATTEND Allergy & Immunology
PROC: HZ2ZZZZ Detoxification Services for Substance Abuse Treatment (ICD-10-PCS; principal; 2019-03-27)
DX: F10.230 Alcohol dependence with withdrawal, uncomplicated (principal); F19.280 Other psychoactive substance dependence with psychoactive substance-induced anxiety disorder; F12.20 Cannabis dependence, uncomplicated; F17.210 Nicotine dependence, cigarettes, uncomplicated; F19.24 Other psychoactive substance dependence with psychoactive substance-induced mood disorder; I10 Essential (primary) hypertension; E78.5 Hyperlipidemia, unspecified; E11.9 Type 2 diabetes mellitus without complications; Z79.84 Long term (current) use of oral hypoglycemic drugs; J45.20 Mild intermittent asthma, uncomplicated; J44.9 Chronic obstructive pulmonary disease, unspecified; Z88.1 Allergy status to other antibiotic agents; Z88.6 Allergy status to analgesic agent
CPT/HCPCS: 36415; 80053; 82962; 85025; 85027; 86593

== ENCOUNTER 2021-01-05 13:39 | Inpatient (IN) | payer OTHER ==
[2021-01-05] MEDS ORDERED: BISMUTH SUBSALICYLATE 524 MG/30 ML PO PRN (17:49)
[2021-01-05] MEDS ORDERED: ONDANSETRON *ODT* 4 MG TABLET SL PRN (17:49)
[2021-01-05] MEDS ORDERED: MAG HYDROX/AL HYDROX/SIMETH 30 ML UNIT-DOSE CUP PO PRN (17:49)
[2021-01-05] MEDS ORDERED: MENTHOL/PHENOL 1 EACH UD MM PRN (17:49)
[2021-01-05] MEDS ORDERED: ACETAMINOPHEN 325 MG TABLET (FP) PO PRN ×2 (17:49)
[2021-01-05] MEDS ORDERED: NICOTINE 10 MG CARTRIDGE (INHALER) IH PRN (17:49)
[2021-01-05] MEDS ORDERED: MAGNESIUM HYDROX 2400MG/30ML ORAL SUSPENSION 30 ML CUP PO PRN (17:49)
[2021-01-05] MEDS ORDERED: MAGNESIUM CITRATE 300 ML BOTTLE PO PRN (17:49)
[2021-01-05] MEDS ORDERED: METHOCARBAMOL 500 MG TABLET PO PRN (17:49)
[2021-01-05] MEDS ORDERED: diazePAM 5 MG TABLET PO PRN (17:49)
[2021-01-05 19:06] VITALS: BMI 18.8
[2021-01-05] MEDS ORDERED: ALBUTEROL SO4 HFA INHALER IH PRN (20:00)
[2021-01-05] MEDS: NICOTINE 21 MG/24 HOURS TOPICAL PATCH TD SCH (20:27)
[2021-01-05] MEDS: hydrOXYzine PAMOATE 25 MG CAPSULE (FP) PO SCH ×2 (20:27→23:55)
[2021-01-05] MEDS ORDERED: MELATONIN 5 MG TABLETS PO SCH (22:00)
[2021-01-05] MEDS: THIAMINE HCL 100 MG TABLET (FP) PO SCH (23:55)
[2021-01-05] MEDS: diazePAM 5 MG TABLET PO SCH (23:56)
[2021-01-06] MEDS: hydrOXYzine PAMOATE 25 MG CAPSULE (FP) PO SCH ×5 (06:22→22:17)
[2021-01-06] MEDS: diazePAM 5 MG TABLET PO SCH ×4 (06:22→22:18)
[2021-01-06] MEDS: metFORMIN HCL 500 MG TABLET (FP) PO SCH (07:10)
[2021-01-06] MEDS: ASPIRIN 81 MG CHEWABLE TABLETS PO SCH (10:36)
[2021-01-06] MEDS: LOSARTAN POTASSIUM 50 MG TABLET PO SCH (10:36)
[2021-01-06] MEDS: NIFEdipine E.R. 30 MG TABLET PO SCH (10:36)
[2021-01-06] MEDS: PRENATAL VITAMINS W/ FOLIC ACID TABLET (FP) PO SCH (10:37)
[2021-01-06] MEDS: NICOTINE 21 MG/24 HOURS TOPICAL PATCH TD SCH (10:40)
[2021-01-06 12:19] LABS: HEMATOCRIT 36.4 % (32.4-45.2); HEMOGLOBIN 11.8 GM/dL (10.7-15.3); MCH 27.1 pg (25.7-33.7); MCHC 32.6 g/dl (32.0-36.0); MEAN CELL VOLUME 83.3 fl (80-96); MEAN PLT VOLUME 8.8 fl (7.5-11.1); PLATELET COUNT 281 10^3/uL (134-434); RBC 4.37 M/mm3 (3.60-5.2); RDW 15.1 % (11.6-15.6); WHITE BLOOD COUNT 5.8 K/mm3 (4.0-10.0)
[2021-01-06 12:21] LABS: CALCIUM 8.3 mg/dL (8.5-10.1)
[2021-01-06 12:22] LABS: ALBUMIN 3.1 g/dl (3.4-5.0); BLOOD UREA NITROGEN 14.4 mg/dL (7-18)
[2021-01-06 12:25] LABS: CREATININE 0.8 mg/dL (0.55-1.3)
[2021-01-06 12:26] LABS: TOT PROT 6.2 g/dl (6.4-8.2)
[2021-01-06 12:28] LABS: BILIRUBIN,TOTAL 0.3 mg/dL (0.2-1)
[2021-01-06 13:49] LABS: HIV INTERPRETATION NEGATIVE (NEGATIVE)
[2021-01-06] MEDS: MELATONIN 5 MG TABLETS PO SCH (22:17)
[2021-01-06] MEDS: THIAMINE HCL 100 MG TABLET (FP) PO SCH (22:17)
[2021-01-07] MEDS: diazePAM 5 MG TABLET PO SCH ×3 (07:04→22:14)
[2021-01-07] MEDS: metFORMIN HCL 500 MG TABLET (FP) PO SCH (07:08)
[2021-01-07] MEDS: hydrOXYzine PAMOATE 25 MG CAPSULE (FP) PO SCH ×2 (07:09→10:22)
[2021-01-07] MEDS: PRENATAL VITAMINS W/ FOLIC ACID TABLET (FP) PO SCH (10:20)
[2021-01-07] MEDS: ASPIRIN 81 MG CHEWABLE TABLETS PO SCH (10:23)
[2021-01-07] MEDS: NICOTINE 21 MG/24 HOURS TOPICAL PATCH TD SCH (10:23)
[2021-01-07] MEDS: NIFEdipine E.R. 30 MG TABLET PO SCH (10:46)
[2021-01-07] MEDS: LOSARTAN POTASSIUM 50 MG TABLET PO SCH (10:46)
[2021-01-07] MEDS: hydrOXYzine PAMOATE 25 MG CAPSULE (FP) PO PRN (22:14)
[2021-01-07] MEDS: MELATONIN 5 MG TABLETS PO SCH (22:14)
[2021-01-07] MEDS: THIAMINE HCL 100 MG TABLET (FP) PO SCH (22:14)
[2021-01-08] MEDS: metFORMIN HCL 500 MG TABLET (FP) PO SCH (06:38)
[2021-01-08] MEDS: diazePAM 5 MG TABLET PO SCH ×2 (06:38→17:22)
[2021-01-08] MEDS: ASPIRIN 81 MG CHEWABLE TABLETS PO SCH (11:37)
[2021-01-08] MEDS: NICOTINE 21 MG/24 HOURS TOPICAL PATCH TD SCH (11:37)
[2021-01-08] MEDS: LOSARTAN POTASSIUM 50 MG TABLET PO SCH (11:37)
[2021-01-08] MEDS: NIFEdipine E.R. 30 MG TABLET PO SCH (11:38)
[2021-01-08] MEDS: PRENATAL VITAMINS W/ FOLIC ACID TABLET (FP) PO SCH (11:38)
[2021-01-08] MEDS: MELATONIN 5 MG TABLETS PO SCH (22:20)
[2021-01-08] MEDS: THIAMINE HCL 100 MG TABLET (FP) PO SCH (22:20)
[2021-01-08] MEDS: hydrOXYzine PAMOATE 25 MG CAPSULE (FP) PO PRN (22:22)
[2021-01-09] MEDS ORDERED: diazePAM 5 MG TABLET PO ONE (06:00)
[2021-01-09] MEDS: metFORMIN HCL 500 MG TABLET (FP) PO SCH (06:25)
[2021-01-09] MEDS: ASPIRIN 81 MG CHEWABLE TABLETS PO SCH (10:42)
[2021-01-09] MEDS: LOSARTAN POTASSIUM 50 MG TABLET PO SCH (10:42)
[2021-01-09] MEDS: NIFEdipine E.R. 30 MG TABLET PO SCH (10:42)
[2021-01-09] MEDS: PRENATAL VITAMINS W/ FOLIC ACID TABLET (FP) PO SCH (10:43)
[2021-01-09] MEDS: NICOTINE 21 MG/24 HOURS TOPICAL PATCH TD SCH (10:43)
[2021-01-09 13:37] VITALS: BP 129/80; PULSE 91; TEMP 96.9
== END 2021-01-09 14:02 | disposition home or self-care (01) | DRG 897 ==
LOC: YASAS 13:39 → Y3N 17:52
PROVIDERS: ADMIT Allergy & Immunology; ATTEND Allergy & Immunology
PROC: HZ2ZZZZ Detoxification Services for Substance Abuse Treatment (ICD-10-PCS; principal; 2021-01-05)
DX: F10.230 Alcohol dependence with withdrawal, uncomplicated (principal); F14.20 Cocaine dependence, uncomplicated; F19.282 Other psychoactive substance dependence with psychoactive substance-induced sleep disorder; F12.20 Cannabis dependence, uncomplicated; F17.210 Nicotine dependence, cigarettes, uncomplicated; I10 Essential (primary) hypertension; E11.65 Type 2 diabetes mellitus with hyperglycemia; R76.8 Other specified abnormal immunological findings in serum; J44.9 Chronic obstructive pulmonary disease, unspecified; J45.20 Mild intermittent asthma, uncomplicated; Z88.1 Allergy status to other antibiotic agents; Z88.6 Allergy status to analgesic agent; Z79.84 Long term (current) use of oral hypoglycemic drugs; Z56.0 Unemployment, unspecified
CPT/HCPCS: 36415; 71046-TC-FY; 80053; 82962; 85027; 86593; 86780; 87389; C9803; U0003; U0005